=== PATIENT | male | born 2000 | race Caucasian/White ===

== ENCOUNTER 2019-11-27 07:58 | Outpatient (CLI) | payer OTHER, SELFPAY ==
--- NOTE | 2019-11-27 08:05 | CT_ITS ---
WS: [id number] CT THORACIC SPINE TECHNIQUE: Noncontrast CT of the thoracic spine with coronal and sagittal reformatted images. CLINICAL INFORMATION: WORK RELATED INJURY, ACUTE MIDLINE THORACIC BACK PAIN COMPARISON: Radiograph 2019 DLP: 1568.[address] scans at [facility] use at least one of these dose optimization techniques: automat ed exposure control; mA and/or kV adjustment per patient size (includes targeted exams where dose is matched to clinical indication); or iterative reconstruction. FINDINGS: Moderate thoracic kyphosis. Chronic anterior wedging with endplate Schmorl's nodes at the thoracolumb ar junction with focal kyphosis at this level. 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 Acute appearing compression fractures involving the superior endplates at T6 and T7 with visualized fracture clefts. Minimal loss vertebral body height. No retropulsion. Fracture cleft at C7 eccentric to the right. Pedicles appear intact. No other visualized compression fractures. No significant spinal canal narrowing. Central canal is patent. Atelectasis in the lung bases. CT/CT thoracic spin wo con* [id number] IMPRESSION: 1. Acute appearing compression fractures involving the superior endplates at T 6 and T7 with visualized fracture clefts. No retropulsion. Pedicles appear inta ct. Minimal loss vertebral body height. 2. No significant central canal stenosis. 3. Moderate thoracic kyphosis with kyphosis at the thoracolumbar junction T9-L 1 with ankylosis.
== END 2019-11-27 07:59 | disposition home or self-care (01) ==
LOC: RADWPI 07:59
PROVIDERS: Family Provider Family Medicine; PCP Family Medicine; Visit Provider Nurse Practitioner Family
DX: S22.050A Wedge compression fracture of T5-T6 vertebra, initial encounter for closed fracture (principal); S22.060A Wedge compression fracture of T7-T8 vertebra, initial encounter for closed fracture; Y99.0 Civilian activity done for income or pay
CPT/HCPCS: 72128